=== PATIENT | male | born 1970 | race Caucasian/White ===

== ENCOUNTER → 2020-07-01 09:29 | Outpatient (BNVA) | payer MEDICARE, SELFPAY | PROVIDERS: Referring Provider Family Medicine; Visit Provider Specialist | DX: M25.519 Pain in unspecified shoulder (principal) | CPT/HCPCS: 73030 ==

== ENCOUNTER → 2020-08-02 13:32 | Outpatient (BNVA) | payer MEDICARE, SELFPAY | PROVIDERS: Visit Provider Specialist | DX: M25.512 Pain in left shoulder (principal) | CPT/HCPCS: 73030 ==

== ENCOUNTER 2020-08-20 12:40 | Outpatient (CLI) | payer MEDICARE, SELFPAY ==
--- NOTE | 2020-08-20 13:00 | MR_ITS ---
WS: [id number] MRI LEFT SHOULDER HISTORY: M19.012 - Primary osteoarthritis, left shoulder COMPARISON: Shoulder radiograph 08/02/2020 TECHNIQUE: Multiplanar sequences of the shoulder joint are submitted. Significant motion artifact due to patient discomfort and claustrophobia. Study terminated early geraldo use of claustrophobia and pain. Moderate AC joint hypertrophy and osteoarthritis. Increased T2 signal through the AC ligament. There is thickening of the capsule surrounding the AC joint and fluid in the subacromial and subdeltoid bur sa. Osteophytes and hypertrophic bone formation causing mild encroachment upon the anterior supraspin atus. There is deformity of the supraspinatus muscle and tendon. No os acromion. Biceps tendon in nor mal position. Subchondral cystic changes involving the posterior lateral humeral head. Insertion site tear of the supraspinatus tendon with a small amount of fluid extending interstitial. There is also tendinopathy within the distal 2 cm of the tendon. Moderate fraying along both the supe rior and inferior articular surfaces. There is very mild atrophy of the supraspinatus muscle with no edema or fat replacement. No labral tear. No additional rotator cuff tear. MR/MR shoulder LT wo con* [id number] IMPRESSION: 1. Moderate AC joint osteoarthritis with moderate encroachment upon the supras pinatus muscle and tendon. 2. Insertion site tear with mild interstitial extension of the supraspinatus t endon. 3. Supraspinatus tendinopathy involving the distal 2 cm of the tendon.
== END 2020-08-20 12:41 | disposition home or self-care (01) ==
LOC: RADSHAW 12:42
PROVIDERS: PCP Family Medicine; Visit Provider Specialist
DX: M19.012 Primary osteoarthritis, left shoulder (principal); M75.102 Unspecified rotator cuff tear or rupture of left shoulder, not specified as traumatic
CPT/HCPCS: 73221

== ENCOUNTER 2020-10-11 11:39 | Emergency (ER) | payer MEDICARE, SELFPAY ==
[2020-10-11 12:42] VITALS: BP 154/93; PULSE 96; RESP 19; TEMP 37.3; O2SAT 95; BMI 34.2
--- NOTE | 2020-10-11 14:33 | ECG_ITS ---
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
[2020-10-11 14:34] VITALS: BP 169/95; BP 175/111; BP 183/112; PULSE 105; PULSE 79; PULSE 86
--- NOTE | 2020-10-11 14:34 | W.ED.GENADLT ---
HPI - General Adult General: Chief complaint: General Medical Stated complaint: HIGH/LOW BP Time Seen by Provider: 10/11/20 14:30 History of Present Illness: HPI narrative: This patient presents to the emergency department with complaint of feeling off balance at times. Patient states he does have hypertension issues and does take lisinopril for the same. Patient also takes 10 mg of oxycodone 6 times a day. Patient states he thinks he drinks plenty of fluids but is not sure. Patient does not have any other complaints. States has been going on for 3 to 4 days. Will do medical evaluation treat as needed Onset (ago): day(s) Associated symptoms: Deny chest pain, dyspnea, headache(s), nausea, rash, palpitations or vomiting Review of Systems General: Reports: 10 or more systems reviewed and unremarkable except in HPI and below Const: Denies: fever(s), chills, body aches or fatigue Eyes: Denies: change in vision or blurry vision ENMT: Denies: throat pain, hoarseness or mouth pain Card: Denies: chest pain, palpitations, irregular heart rhythm, edema, swelling of feet/ankles or lightheadedness Resp: Denies: dyspnea, productive cough, non-productive cough, wheezing or pain on inspiration GI: Denies: abdominal pain, nausea or vomiting : Denies: flank pain, dysuria, urinary frequency, urinary urgency or urinary hesitancy Musc: Denies: neck pain, back pain, extremity pain, extremity swelling, joint pain, joint swelling, joint redness, joint warmth or limited range of motion Skin/Breast: Denies: rash, pruritus, erythema or skin tenderness Neuro: Reports: dizziness; Denies: headache(s), numbness in extremities or weakness in extremities Psych: Denies: anxiety or depression PFS ED PFSH: Social History Smoking and tobacco status: never smoked Second hand smoke exposure: No Alcohol intake: former Physical Exam Const: COMMON NORMALS: no acute distress, average body habitus, patient oriented x3, no limitations, healthy appearing, alert and well nourished HENMT: COMMON NORMALS: normocephalic, atraumatic, hearing grossly normal bilaterally, external ears normal, EAC's normal, TM's normal bilaterally, Normal external nose present, Normal nasal mucous membranes and turbinates present, moist oral mucous membranes, oropharynx normal, dentition normal and gingiva normal HEAD & SCALP: normocephalic and atraumatic NOSE: Normal external nose present and Normal nasal mucous membranes and turbinates present EXTERNAL EAR: Yes external ears normal EXTERNAL AUDITORY CANAL: EAC's normal TYMPANIC MEMBRANE: TM's normal bilaterally Neck/C-Spine: COMMON NORMALS: full ROM, no lymphadenopathy, supple, no meningeal signs, no JVD, Thyroid normal and No carotid bruits THYROID: Thyroid normal Chest: COMMONS NORMALS: normal inspection of the chest, normal palpation of entire chest wall, normal inspection of the breasts and normal palpation of the breasts Breast/axilla inspection: Yes normal inspection of the breasts BREAST/AXILLA PALPATION: Yes normal palpation of the breasts Resp: COMMON NORMALS: normal respiratory effort, No retractions, No use of accessory muscles, clear to auscultation bilaterally and percussion normal AUSCULTATION: clear to auscultation bilaterally PERCUSSION: percussion normal Cardio: COMMON NORMALS: no JVD, regular rate, regular rhythm, S1 normal heart sound present, S2 normal heart sound present, No gallops present (Cardio), No clicks present (Cardio), No murmurs present (Cardio), No rub (Cardio) and Peripheral pulses 2+ throughout RATE: regular rate RHYTHM: regular rhythm HEART SOUNDS: S1 normal heart sound present and S2 normal heart sound present PERIPHERAL PULSES: Peripheral pulses 2+ throughout GI: COMMON NORMALS: Normal to inspection, nondistended, normoactive bowel sounds present, Soft to palpation, non-tender, No hepatosplenomegaly present, no masses and no bruits PALPATION: Yes Soft to palpation and Yes No hepatosplenomegaly present : COMMON NORMALS: Yes no CVA tenderness BLADDER/KIDNEY EXAM: Yes no CVA tenderness Back/Pelvis: COMMON NORMALS: no CVA tenderness, thoracic and lumbar spine normal to inspection, no thoracic nor lumbar tenderness, thoraco-lumbar ROM normal and straight leg raise negative bilaterally Extremity: COMMON NORMALS: normal to inspection, full ROM, capillary refill normal, no joint enlargement, no clubbing, cyanosis or edema, no calf tenderness and no pedal edema Neuro: COMMON NORMALS: patient oriented x3 SENSORIUM/ORIENTATION: Yes alert MENINGEAL SIGNS: Yes no meningeal signs Course Reevaluation(s): Reevaluation #1: Negative evaluation in the emergency room for any acute findings. Patient is to continue all home medications encourage p.o. fluids and follow-up with primary care physician. Time: 17:45 Vital Signs: Vital signs: Vital Signs Temperature 99.2 F 10/11/20 17:00 Pulse Rate 83 10/11/20 17:00 Respiratory Rate 16 10/11/20 17:00 Blood Pressure 168/99 10/11/20 17:00 Pulse Oximetry 97 10/11/20 17:00 MDM - General Adult MDM Narrative: Medical decision making narrative: This patient presents to the emergency department with complaint of feeling off balance at times. Patient states he does have hypertension issues and does take lisinopril for the same. Patient also takes 10 mg of oxycodone 6 times a day. Patient states he thinks he drinks plenty of fluids but is not sure. Patient does not have any other complaints. States has been going on for 3 to 4 days. Will do medical evaluation treat as needed Negative evaluation in the emergency room for any acute findings. Patient is to continue all home medications encourage p.o. fluids and follow-up with primary care physician. Medical Records: Attestation: I reviewed the patient's medical records. Lab Data: Attestation: I reviewed the patient's lab results. Labs: Lab Results 10/11/20 10/11/20 10/11/20 Range/Units 14:43 14:43 15:05 WBC 10.5 H (4.0-10.0) 10^3/ uL RBC 6.08 H (4.1-5.3) 10^6/u L Hgb 12.8 (11.7-16.6) g/dL Hct 39.0 L (42.0-52.0) % MCV 64.1 L (80-94) fL MCH 21.1 L (28.0-34.0) pg MCHC 32.8 (30.0-36.0) g/dL RDW 15.3 H (12.1-15.1) % Plt Count 301 (130-400) 10^3/c mm MPV 10.7 H (7.4-10.4) fL Neut % (Auto) 61.5 % Lymph % (Auto) 30.7 % [place] % (Auto) 6.5 % Eos % (Auto) 0.5 % Baso % (Auto) 0.4 % Neut # (Auto) 6.49 (1.8-7.7) 10^3/u L Lymph # (Auto) 3.2 (0.8-4.8) 10^3/u L [place] # (Auto) 0.7 (0.2-0.9) 10^3/u L Eos # (Auto) 0.1 (0.0-0.8) 10^3/u L Baso # (Auto) 0.0 (0.0-0.1) 10^3/u L Nucleated RBC % (a uto) 0.2 % Nucleated RBCs # 0.0 /100WBC Sodium 132 L (136-145) mmol/L Potassium 3.9 (3.5-5.1) mmol/L Chloride 95 L (98-107) mmol/L Carbon Dioxide 20 L (22-29) mmol/L Anion Gap 20.9 H (5-19) BUN 10 (6-20) mg/dL Creatinine 0.6 L (0.7-1.2) mg/dL GFR Calculation 142.0 H (90-130) mL/min Glucose 169 H (65-115) mg/dL Calculated Osmolal ity 277 L (285-295) mOsm/k g Calcium 9.1 (8.5-10.5) mg/dL Total Bilirubin 0.7 (0.15-1.2) mg/dL AST 16 (0-40) U/L ALT 21 (0-41) U/L Alkaline Phosphata se 93 (40-130) IU/L Total Protein 7.6 (6.6-8.7) g/dL Albumin 4.7 (3.5-5.2) g/dL Globulin 2.9 (1.3-4.6) g/dL Urine Color Yellow (Yellow) Urine Appearance Clear (CLEAR) Urine pH 5 (5-7) Ur Specific Gravit y 1.020 (1.005-1.030) Urine Protein Neg (Negative) Urine Glucose (UA) 2+ (Normal) Urine Ketones 1+ H (Negative) Urine Blood Neg (Negative) Urine Nitrate Negative (Negative) Urine Bilirubin Neg (Negative) Urine Urobilinogen Norm (Negative) mg/dL Ur Leukocyte Arlene ase Negative (Negative) EKG Data^: EKG 1: Attestation: I personally reviewed and interpreted this EKG as follows: EKG interpretation date: 10/11/20 EKG interpretation time: 14:45 Prior EKG tracings: not available for review Interpretation: Sinus rhythm with left axis deviation heart rate 80 Discharge Plan Discharge Patient Disposition: Home Clinical Impression: Orthostasis, Chronic pain Condition: Stable Prescriptions: No Action pantoprazole 20 mg tablet,delayed release (DR/EC) 20 mg PO DAILY RF: 0 zolpidem [Ambien] 10 mg tablet 10 mg PO BEDTIME RF: 0 atorvastatin 40 mg tablet 40 mg PO DAILY RF: 0 buspirone 30 mg tablet 30 mg PO BID RF: 0 lamotrigine 200 mg tablet 200 mg PO DAILY RF: 0 lisinopril 40 mg tablet 40 mg PO DAILY RF: 0 nabumetone 750 mg tablet 750 mg PO BID RF: 0 Ozempic 0.25 mg or 0.5 mg(2 mg/1.5 mL) pen injector 0.5 mg SUBCUT Q7D RF: 0 tizanidine 4 mg capsule 4 mg PO TID PRN (Reason: muscle spasms) RF: 0 oxycodone 10 mg tablet 10 mg PO Q8H PRN (Reason: Pain) RF: 0 Tylenol 325 mg Tablet 325 - 650 mg PO Q4H PRN (Reason: Pain) RF: 0 gabapentin 600 mg tablet 600 mg PO TID RF: 0 metformin 1,000 mg tablet 1,000 mg PO BID RF: 0 duloxetine 60 mg capsule,delayed release(DR/EC) 60 mg PO BID RF: 0 hydrochlorothiazide 12.5 mg tablet 12.5 mg PO DAILY RF: 0 Discharge Orders: Discharge ED (Routine); Ordered 10/11/20 Ordered By: Alexander Merritt Referrals: Maxine Napier DO [Primary Care Provider] - Discharge Diet: Advance as tolerated Discharge Activity: Resume usual activity Patient Instructions: Opioid Safety Activity Restrictions/Additional Instructions: Encourage p.o. fluids. Continue all home medications. Follow-up with your PCP in 2 to 3 days. Coding Level of Care Code ED Instructor Kindergarten for Chg Fwd Exam Comprehensive
[2020-10-11 14:36] VITALS: BP 171/104; PULSE 80; RESP 16; O2SAT 94
[2020-10-11 14:48] LABS: Basophils % 0.4 %; Eosinophils # 0.1 10^3/uL (0.0-0.8); Eosinophils % 0.5 %; Hemoglobin 12.8 g/dL (11.7-16.6); Lymphocytes # 3.2 10^3/uL (0.8-4.8); Lymphocytes % 30.7 %; Mean Corpuscular HGB Conc 32.8 g/dL (30.0-36.0); Mean Corpuscular Hemoglobin 21.1 pg (28.0-34.0); Mean Corpuscular Volume 64.1 fL (80-94); Mean Platelet Volume 10.7 fL (7.4-10.4); Monocytes # 0.7 10^3/uL (0.2-0.9); Monocytes % 6.5 %; Neutrophils # 6.49 10^3/uL (1.8-7.7); Neutrophils % 61.5 %; Nucleated Red Blood Cells % 0.2 %; Platelet Count 301 10^3/cmm (130-400); Red Blood Count 6.08 10^6/uL (4.1-5.3); Red Cell Distribution Width 15.3 % (12.1-15.1); White Blood Count 10.5 10^3/uL (4.0-10.0)
[2020-10-11] MEDS: sodium chloride 0.9% 500 ML IV (15:01)
[2020-10-11 15:09] LABS: Alanine Aminotransferase 21 U/L (0-41); Albumin Level 4.7 g/dL (3.5-5.2); Alkaline Phosphatase 93 IU/L (40-130); Anion Gap 20.9 (5-19); Aspartate Amino Transferase 16 U/L (0-40); Blood Urea Nitrogen 10 mg/dL (6-20); Calcium 9.1 mg/dL (8.5-10.5); Carbon Dioxide 20 mmol/L (22-29); Chloride 95 mmol/L (98-107); Globulin 2.9 g/dL (1.3-4.6); Glucose 169 mg/dL (65-115); Osmolality Calculated 277 mOsm/kg (285-295); Potassium 3.9 mmol/L (3.5-5.1); Sodium 132 mmol/L (136-145); Total Bilirubin 0.7 mg/dL (0.15-1.2); Total Protein 7.6 g/dL (6.6-8.7)
[2020-10-11 15:11] LABS: Add Urine Microscopic? NO; Charge for UA Resulting for Rev
[2020-10-11 15:44] LABS: Bilirubin Urine Neg (Negative); Blood Urine Neg (Negative); Glucose Urine UA 2+ (Normal); Ketones Urine 1+ (Negative); Leukocyte Esterase Urine Negative (Negative); Nitrate Urine Negative (Negative); Protein Urine Neg (Negative); Urine Appearance Clear (CLEAR); Urine Color Yellow (Yellow); Urobilinogen Urine Norm (Negative); pH Urine 5 (5-7)
[2020-10-11 15:48] VITALS: BP 168/99; PULSE 87; RESP 16; O2SAT 97
[2020-10-11 17:00] VITALS: BP 168/99; PULSE 83; RESP 16; TEMP 37.3; O2SAT 97
[2020-10-11 18:06] VITALS: BP 155/90; PULSE 78; RESP 16; TEMP 37.2; O2SAT 97
== END 2020-10-11 18:01 | disposition home or self-care (01) ==
PROVIDERS: Physician Assistant; Emergency Provider Emergency Medicine; PCP Family Medicine
DX: I95.1 Orthostatic hypotension (principal); G89.29 Other chronic pain
CPT/HCPCS: 80053; 81003; 85025; 93005; 96360; 99284; J7040

== ENCOUNTER 2021-05-14 15:49 | Emergency (ER) | payer MEDICARE, SELFPAY ==
[2021-05-14 16:06] VITALS: BP 123/95; PULSE 93; RESP 18; TEMP 37; O2SAT 92; BMI 33.3
--- NOTE | 2021-05-14 16:19 | ECG_ITS ---
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 Measurements Intervals [place] Rate: 80 P: 11 [place]: 179 QRS: -41 QRSD: 102 T: 21 QT: 359 QTc: 415 Interpretive Statements SINUS RHYTHM LEFT AXIS DEVIATION [QRS AXIS < -30] POSSIBLE ANTERIOR MYOCARDIAL INFARCTION , OF INDETERMINATE AGE [30 ms Q WAVE IN V3/V4, OR R < 0.2 mV IN V4] Compared to ECG 05/14/2021 16:32:16 Left-axis deviation now present Left anterior fascicular block no longer present Myocardial infarct finding still present Electronically Signed On 05-15-2021 12:09:03 [employer] PLANNING ENGINEER by Rizwana Grant M.D. [email or web address].[employer]/store/[id number]
--- NOTE | 2021-05-14 17:23 | W.ED.GENADLT ---
Documented by User: KAYLYN Montero 05/14/21 19:28 HPI - General Adult General: Chief complaint: General Medical Stated complaint: POSS ACID REFLUX SINCE 1200 Time Seen by Provider: 05/14/21 17:23 History of Present Illness: 51-year-old male patient comes in today with some complaints of dyspepsia and reflux. Patient reports it feels funny in his throat and has seemed to have worsened over the last month with bouts of reflux. Patient does have a history of chronic pain, gastroesophageal reflux, and psychiatric disorder. Patient reports that the discomfort is persistent. Patient does take pantoprazole routinely and has doubled up on his dose yesterday and today. Patient does report some improvement since arriving to the ER. Patient appears in mild to no pain. Patient appears in no acute distress. Review of Systems General: Reports: 10 or more systems reviewed and unremarkable except in HPI and below ENMT: Reports: throat pain PFSH ED PFSH: Social History Smoking and tobacco status: never smoked Second hand smoke exposure: No Alcohol intake: former Physical Exam Const: COMMON NORMALS: alert HENMT: COMMON NORMALS: normocephalic and TM's normal bilaterally HEAD & SCALP: normocephalic NOSE: Abnormal mucous membranes and turbinates present EXTERNAL AUDITORY CANAL: Abnormal EAC present EAC laterality: left (Abrasion outer ear canal) TYMPANIC MEMBRANE: TM's normal bilaterally MOUTH: Normal oral and palatal mucosa present THROAT: posterior oropharynx normal Neck/C-Spine: CERVICAL SPINE: Yes Cervical spine tenderness Lymph: LYMPHATIC: no lymphadenopathy noted Chest: CHEST: Yes tenderness rib (left lateral rib) Resp: COMMON NORMALS: normal respiratory effort and clear to auscultation bilaterally AUSCULTATION: clear to auscultation bilaterally Cardio: COMMON NORMALS: regular rate and regular rhythm RATE: regular rate RHYTHM: regular rhythm GI: COMMON NORMALS: Soft to palpation PALPATION: Yes Soft to palpation and Yes Tenderness to palpation present (GI) Details: other (epigastric) : COMMON NORMALS: Yes no CVA tenderness BLADDER/KIDNEY EXAM: Yes no CVA tenderness Back/Pelvis: COMMON NORMALS: no CVA tenderness THORACIC SPINE/UPPER BACK: No thoracic spinal tenderness LUMBAR SPINE/LOWER BACK: Yes lumbar spinal tenderness Extremity: COMMON NORMALS: no pedal edema Neuro: SENSORIUM/ORIENTATION: Yes alert Psych: COMMON NORMALS: cooperative Skin: COMMON NORMALS: no rashes or lesions noted GENERAL SKIN EXAM: no rashes or lesions noted Course Vital Signs: Vital signs: Vital Signs Temperature 98.6 F 05/14/21 16:06 Pulse Rate 93 05/14/21 16:06 Respiratory Rate 18 05/14/21 16:06 Blood Pressure 123/95 05/14/21 16:06 Pulse Oximetry 92 05/14/21 16:06 [facility] - General Adult Medical Decision Making 51-year-old male patient comes in today with complaints of throat pain and increase in reflux. Patient appears well. Patient appears in no acute distress. On exam patient does have some epigastric tenderness. Posterior pharynx is slightly erythematous. Respirations are even lungs are clear to auscultation. Skin is warm and dry. Differential diagnosis includes but not limited to ACS, esophageal reflux, hiatal hernia. Patient was given a GI cocktail with relief of discomfort. CBC and CMP were notable for some mild hyponatremia which seems to be chronic for patient. CBC was unremarkable. Troponin was negative. Believe the patient probably has exacerbation of reflux. We will increase patient's dose of pantoprazole to 40 mg twice a day for the next 10 days and then recommend weaning back to 20 mg daily. Patient was also given some Zofran to help with nausea. Patient has an appointment to follow-up with his primary care doctor this week which she will keep for further recommendations of treatment. Lab Data : 05/14/21 18:02 05/14/21 18:02 Laboratory Results WBC 8.7 10^3/uL (4.0-10.0) 05/14/21 18: RBC 6.91 10^6/uL (4.1-5.3) H 05/14/21 18:02 Hgb 13.9 g/dL (11.7-16.6) 05/14/21 18:02 Hct 44.0 % (42.0-52.0) 05/14/21 18: MCV 63.7 fl (80-94) L 05/14/21 18:02 MCH 20.1 pg (28.0-34.0) L 05/14/21 18: MCHC 31.6 g/dL (30.0-36.0) 05/14/21 18:02 RDW 14.0 % (12.1-15.1) 05/14/21 18:02 Plt Count 254 10^3/cmm (130-400) 05/14/21 18:02 MPV 10.6 fL (7.4-10.4) H 05/14/21 18:02 Neut % (Auto) 57.6 % 05/14/21 18:02 Lymph % (Auto) 30.0 % 05/14/21 18:02 [place] % (Auto) 7.6 % 05/14/21 18:02 Eos % (Auto) 3.7 % 05/14/21 18:02 Baso % (Auto) 0.8 % 05/14/21 18:02 Neut # (Auto) 5.00 10^3/uL (1.8-7.7) 05/14/21 18: Lymph # (Auto) 2.6 10^3/uL (0.8-4.8) 05/14/21 18:02 [place] # (Auto) 0.7 10^3/uL (0.2-0.9) 05/14/21 18:02 Eos # (Auto) 0.3 10^3/uL (0.0-0.8) 05/14/21 18:02 Baso # (Auto) 0.1 10^3/uL (0.0-0.1) 05/14/21 18:02 Nucleated RBC % (auto) 0 % 05/14/21 18: Nucleated RBCs # 0.0 /100WBC 05/14/21 18:02 Sodium 128 mmol/L (136-145) L 05/14/21 18:02 Potassium 4.6 mmol/L (3.5-5.1) 05/14/21 18:02 Chloride 90 mmol/L (98-107) L 05/14/21 18:02 Carbon Dioxide 22 mmol/L (22-29) 05/14/21 18:02 Anion Gap 20.6 (5-19) H 05/14/21 18:02 BUN 7 mg/dL (6-20) 05/14/21 18:02 Creatinine 0.6 mg/dL (0.7-1.2) L 05/14/21 18:02 GFR Calculation 141.5 mL/min (90-130) H 05/14/21 18:02 Glucose 176 mg/dL (65-115) H 05/14/21 18:02 Calculated Osmolality 268 mOsm/kg (285-295) L 05/14/21 18:02 Calcium 9.9 mg/dL (8.5-10.5) 05/14/21 18:02 Total Bilirubin 0.4 mg/dL (0.15-1.2) 05/14/21 18:02 AST 28 U/L (0-40) 05/14/21 18:02 ALT 38 U/L (0-41) 05/14/21 18:02 Alkaline Phosphatase 94 IU/L (40-130) 05/14/21 18:02 Troponin T Baseline 9 ng/L (0-15) 05/14/21 18:02 Total Protein 8.2 g/dL (6.6-8.7) 05/14/21 18: Albumin 5.1 g/dL (3.5-5.2) 05/14/21 18: Globulin 3.1 g/dL (1.3-4.6) 05/14/21 18:02 Lipase 63 U/L (13-60) H 05/14/21 18:02 EKG Data EKG 1: EKG interpretation date: 05/14/21 EKG interpretation time: 16:32 Interpretation: EKG showed a sinus rhythm, regular rate with [address] elevation is noted. No ectopy is noted. There was some noted changes from prior exam on October 11, 2020. EKG shows left anterior fascicular block which was new possible myocardial infarction of indeterminate age, and absent left axis deviation. Discharge Plan Discharge Patient Disposition: Home Clinical Impression: GERD (gastroesophageal reflux disease) Qualifiers: Esophagitis presence: esophagitis presence not specified Qualified Code(s): K21.9 - Gastro-esophageal reflux disease without esophagitis Condition: Stable Prescriptions: New pantoprazole 40 mg tablet,delayed release (DR/EC) 40 mg PO BID 10 Days Qty: 20 0RF ondansetron 4 mg tablet,disintegrating 4 mg PO Q8H PRN (Reason: nausea and vomiting) Qty: 7 0RF Discontinued Ozempic 0.25 mg or 0.5 mg(2 mg/1.5 mL) pen injector 0.5 mg SUBCUT Q7D 0RF Rx Instructions: take on Fridays. No Action pantoprazole 20 mg tablet,delayed release (DR/EC) 20 mg PO DAILY 0RF zolpidem [Ambien] 10 mg tablet 10 mg PO BEDTIME 0RF atorvastatin 40 mg tablet 40 mg PO DAILY 0RF buspirone 30 mg tablet 30 mg PO BID 0RF lamotrigine 200 mg tablet 200 mg PO DAILY 0RF lisinopril 40 mg tablet 40 mg PO DAILY 0RF nabumetone 750 mg tablet 750 mg PO BID 0RF tizanidine 4 mg capsule 4 mg PO TID PRN (Reason: muscle spasms) 0RF oxycodone 10 mg tablet 10 mg PO Q8H PRN (Reason: Pain) 0RF Tylenol 325 mg Tablet 325 - 650 mg PO Q4H PRN (Reason: Pain) 0RF Rx Instructions: pt takes up to 4 tabs at a time. gabapentin 600 mg tablet 600 mg PO TID 0RF metformin 1,000 mg tablet 1,000 mg PO BID 0RF duloxetine 60 mg capsule,delayed release(DR/EC) 60 mg PO BID 0RF hydrochlorothiazide 12.5 mg tablet 12.5 mg PO DAILY 0RF Discharge Orders: Discharge ED (Routine); Ordered 05/14/21 Ordered By: Homer Escalona Referrals: Maxine Napier DO [Primary Care Provider] - Discharge Diet: As Directed Discharge Activity: Increase activity as tolerated Patient Instructions: GERD (Gastroesophageal Reflux Disease) (ED), Opioid Safety Activity Restrictions/Additional Instructions: Increase pantoprazole to 40 mg twice a day for next 10 days. Then decrease dosing back to 20 mg daily. Use Zofran three times a day as needed for nausea. Drink plenty of water. Avoid carbonated beverages, spicy foods, or other foods that aggravate your reflux. Follow-up with primary care. Return to ER for new concerns. Coding Level of Care Code ED Hospitality Associate for Chg Fwd Exam Comprehensive Documented by User: Cameron Samano DO 05/14/21 23:04 HPI - General Adult General: Chief complaint: General Medical Stated complaint: POSS ACID REFLUX SINCE 1200 Time Seen by Provider: 05/14/21 17:23 [facility] ED PFSH: Social History Smoking and tobacco status: never smoked Second hand smoke exposure: No Alcohol intake: former Course Vital Signs: Vital signs: Vital Signs Temperature 98.6 F 05/14/21 16:06 Pulse Rate 93 05/14/21 16:06 Respiratory Rate 18 05/14/21 16:06 Blood Pressure 123/95 05/14/21 16:06 Pulse Oximetry 92 05/14/21 16:06 MDM - General Adult Medical Decision Making 51-year-old male patient comes in today with complaints of throat pain and increase in reflux. Patient appears well. Patient appears in no acute distress. On exam patient does have some epigastric tenderness. Posterior pharynx is slightly erythematous. Respirations are even lungs are clear to auscultation. Skin is warm and dry. Differential diagnosis includes but not limited to ACS, esophageal reflux, hiatal hernia. Patient was given a GI cocktail with relief of discomfort. CBC and CMP were notable for some mild hyponatremia which seems to be chronic for patient. CBC was unremarkable. Troponin was negative. Believe the patient probably has exacerbation of reflux. We will increase patient's dose of pantoprazole to 40 mg twice a day for the next 10 days and then recommend weaning back to 20 mg daily. Patient was also given some Zofran to help with nausea. Patient has an appointment to follow-up with his primary care doctor this week which she will keep for further recommendations of treatment. This patient was originally seen by KAYLYN Easley.? I agree with his history, evaluation, and treatment. Lab Data : 05/14/21 18:02 05/14/21 18:02 Laboratory Results WBC 8.7 10^3/uL (4.0-10.0) 05/14/21 18:02 RBC 6.91 10^6/uL (4.1-5.3) H 05/14/21 18:02 Hgb 13.9 g/dL (11.7-16.6) 05/14/21 18: Hct 44.0 % (42.0-52.0) 05/14/21 18: MCV 63.7 fl (80-94) L 05/14/21 18: MCH 20.1 pg (28.0-34.0) L 05/14/21 18: MCHC 31.6 g/dL (30.0-36.0) 05/14/21 18: RDW 14.0 % (12.1-15.1) 05/14/21 18: Plt Count 254 10^3/cmm (130-400) 05/14/21 18:02 MPV 10.6 fL (7.4-10.4) H 05/14/21 18:02 Neut % (Auto) 57.6 % 05/14/21 18: Lymph % (Auto) 30.0 % 05/14/21 18: [place] % (Auto) 7.6 % 05/14/21 18: Eos % (Auto) 3.7 % 05/14/21 18: Baso % (Auto) 0.8 % 05/14/21 18: Neut # (Auto) 5.00 10^3/uL (1.8-7.7) 05/14/21 18:02 Lymph # (Auto) 2.6 10^3/uL (0.8-4.8) 05/14/21 18:02 [place] # (Auto) 0.7 10^3/uL (0.2-0.9) 05/14/21 18:02 Eos # (Auto) 0.3 10^3/uL (0.0-0.8) 05/14/21 18:02 Baso # (Auto) 0.1 10^3/uL (0.0-0.1) 05/14/21 18: Nucleated RBC % (auto) 0 % 05/14/21 18: Nucleated RBCs # 0.0 /100WBC 05/14/21 18:02 Sodium 128 mmol/L (136-145) L 05/14/21 18: Potassium 4.6 mmol/L (3.5-5.1) 05/14/21 18:02 Chloride 90 mmol/L (98-107) L 05/14/21 18:02 Carbon Dioxide 22 mmol/L (22-29) 05/14/21 18:02 Anion Gap 20.6 (5-19) H 05/14/21 18:02 BUN 7 mg/dL (6-20) 05/14/21 18:02 Creatinine 0.6 mg/dL (0.7-1.2) L 05/14/21 18:02 GFR Calculation 141.5 mL/min (90-130) H 05/14/21 18:02 Glucose 176 mg/dL (65-115) H 05/14/21 18:02 Calculated Osmolality 268 mOsm/kg (285-295) L 05/14/21 18:02 Calcium 9.9 mg/dL (8.5-10.5) 05/14/21 18:02 Total Bilirubin 0.4 mg/dL (0.15-1.2) 05/14/21 18:02 AST 28 U/L (0-40) 05/14/21 18:02 ALT 38 U/L (0-41) 05/14/21 18:02 Alkaline Phosphatase 94 IU/L (40-130) 05/14/21 18:02 Troponin T Baseline 9 ng/L (0-15) 05/14/21 18:02 Total Protein 8.2 g/dL (6.6-8.7) 05/14/21 18:02 Albumin 5.1 g/dL (3.5-5.2) 05/14/21 18:02 Globulin 3.1 g/dL (1.3-4.6) 05/14/21 18:02 Lipase 63 U/L (13-60) H 05/14/21 18:02 Discharge Plan Discharge Patient Disposition: Home Clinical Impression: GERD (gastroesophageal reflux disease) Qualifiers: Esophagitis presence: esophagitis presence not specified Qualified Code(s): K21.9 - Gastro-esophageal reflux disease without esophagitis Condition: Stable Prescriptions: New pantoprazole 40 mg tablet,delayed release (DR/EC) 40 mg PO BID 10 Days Qty: 20 0RF ondansetron 4 mg tablet,disintegrating 4 mg PO Q8H PRN (Reason: nausea and vomiting) Qty: 7 0RF Discontinued Ozempic 0.25 mg or 0.5 mg(2 mg/1.5 mL) pen injector 0.5 mg SUBCUT Q7D 0RF Rx Instructions: take on Fridays. No Action pantoprazole 20 mg tablet,delayed release (DR/EC) 20 mg PO DAILY 0RF zolpidem [Ambien] 10 mg tablet 10 mg PO BEDTIME 0RF atorvastatin 40 mg tablet 40 mg PO DAILY 0RF buspirone 30 mg tablet 30 mg PO BID 0RF lamotrigine 200 mg tablet 200 mg PO DAILY 0RF lisinopril 40 mg tablet 40 mg PO DAILY 0RF nabumetone 750 mg tablet 750 mg PO BID 0RF tizanidine 4 mg capsule 4 mg PO TID PRN (Reason: muscle spasms) 0RF oxycodone 10 mg tablet 10 mg PO Q8H PRN (Reason: Pain) 0RF Tylenol 325 mg Tablet 325 - 650 mg PO Q4H PRN (Reason: Pain) 0RF Rx Instructions: pt takes up to 4 tabs at a time. gabapentin 600 mg tablet 600 mg PO TID 0RF metformin 1,000 mg tablet 1,000 mg PO BID 0RF duloxetine 60 mg capsule,delayed release(DR/EC) 60 mg PO BID 0RF hydrochlorothiazide 12.5 mg tablet 12.5 mg PO DAILY 0RF Discharge Orders: Discharge ED (Routine); Ordered 05/14/21 Ordered By: Homer Escalona Referrals: Maxine Napier DO [Primary Care Provider] - Discharge Diet: As Directed Discharge Activity: Increase activity as tolerated Patient Instructions: GERD (Gastroesophageal Reflux Disease) (ED), Opioid Safety Activity Restrictions/Additional Instructions: Increase pantoprazole to 40 mg twice a day for next 10 days. Then decrease dosing back to 20 mg daily. Use Zofran three times a day as needed for nausea. Drink plenty of water. Avoid carbonated beverages, spicy foods, or other foods that aggravate your reflux. Follow-up with primary care. Return to ER for new concerns. Coding Level of Care Code ED Hospitality Associate for Eyad Fwadolfo Exam Comprehensive
[2021-05-14] MEDS: lidocaine 2% viscous 15 ML, aluminum-mag hydrox-simethicon 30 ML, sucralfate oral liq 1 GM PO (17:44)
--- NOTE | 2021-05-14 18:19 | ECG_ITS ---
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 Measurements Intervals [place] Rate: 93 P: 13 CA: 179 QRS: -48 QRSD: 100 T: 37 QT: 333 QTc: 415 Interpretive Statements SINUS RHYTHM LEFT ANTERIOR FASCICULAR BLOCK [QRS AXIS <= -45, QR IN I, RS IN II] POSSIBLE ANTERIOR MYOCARDIAL INFARCTION , OF INDETERMINATE AGE [30 ms Q WAVE IN V3/V4, OR R < 0.2 mV IN V4] Compared to ECG 10/11/2020 14:45:52 Left anterior fascicular block now present Myocardial infarct finding now present Left-axis deviation no longer present Electronically Signed On 05-15-2021 12:19:43 [employer] SUPERVISOR by Rizwana Grant M.D. [id number]
[2021-05-14 18:33] LABS: Basophils # 0.1 10^3/uL (0.0-0.1); Basophils % 0.8 %; Eosinophils # 0.3 10^3/uL (0.0-0.8); Eosinophils % 3.7 %; Hemoglobin 13.9 g/dL (11.7-16.6); Lymphocytes # 2.6 10^3/uL (0.8-4.8); Mean Corpuscular HGB Conc 31.6 g/dL (30.0-36.0); Mean Corpuscular Hemoglobin 20.1 pg (28.0-34.0); Mean Corpuscular Volume 63.7 fl (80-94); Mean Platelet Volume 10.6 fL (7.4-10.4); Monocytes # 0.7 10^3/uL (0.2-0.9); Monocytes % 7.6 %; Neutrophils % 57.6 %; Nucleated Red Blood Cells % 0 %; Platelet Count 254 10^3/cmm (130-400); Red Blood Count 6.91 10^6/uL (4.1-5.3); White Blood Count 8.7 10^3/uL (4.0-10.0)
[2021-05-14 18:52] LABS: Alanine Aminotransferase 38 U/L (0-41); Albumin Level 5.1 g/dL (3.5-5.2); Alkaline Phosphatase 94 IU/L (40-130); Blood Urea Nitrogen 7 mg/dL (6-20); Calcium 9.9 mg/dL (8.5-10.5); Carbon Dioxide 22 mmol/L (22-29); Chloride 90 mmol/L (98-107); Globulin 3.1 g/dL (1.3-4.6); Glomerular Filtration Rate 141.5 mL/min (90-130); Glucose 176 mg/dL (65-115); Lipase 63 U/L (13-60); Osmolality Calculated 268 mOsm/kg (285-295); Sodium 128 mmol/L (136-145); Total Bilirubin 0.4 mg/dL (0.15-1.2); Total Protein 8.2 g/dL (6.6-8.7); Troponin(5th) Baseline 9 ng/L (0-15)
[2021-05-14 19:03] LABS: Anion Gap 20.6 (5-19); Aspartate Amino Transferase 28 U/L (0-40); Potassium 4.6 mmol/L (3.5-5.1)
== END 2021-05-14 19:50 | disposition home or self-care (01) ==
PROVIDERS: Physician Assistant; Emergency Provider Nurse Practitioner Family; PCP Family Medicine
DX: K21.9 Gastro-esophageal reflux disease without esophagitis (principal); Z79.84 Long term (current) use of oral hypoglycemic drugs
CPT/HCPCS: 80053; 83690; 84484; 85025; 93005; 99283

== ENCOUNTER 2023-07-19 14:27 | Observation (INO) | payer MEDICARE, SELFPAY ==
[2023-07-19] VITALS (9 sets, daily range): BP systolic 85–145; BP diastolic 59–91; PULSE 76–102; RESP 17–22; TEMP 36.9; O2SAT 93–97; BMI 30.2
--- NOTE | 2023-07-19 14:33 | CT_ITS ---
WS: [id number] CT HEAD NONCONTRAST HISTORY: syncope TECHNIQUE: Contiguous axial imaging performed through the brain in 2.5 mm imaging. Bone and soft tiss ue windows. Sagittal and coronal reformats reviewed. All CT scans at [facility] use at least one of these dose optimization techniques: automated exposure control; mA and/or kV adjustment per pa tient size (includes targeted exams where dose is matched to clinical indication); or iterative recon struction. DLP: 1157.68 mGy.cm COMPARISON: None available. No acute intracranial hemorrhage, midline shift or mass effect. No atrophy or prior infarcts or herniation. Ventricles: Normal size with no hydrocephalus. Paranasal sinuses: As visualized are clear. Mastoid air cells: Well pneumatized. Calvarium and scalp: Skull is intact with no soft tissue edema or swelling. CT/CT head wo con* [id number] IMPRESSION: Negative head CT.
--- NOTE | 2023-07-19 14:33 | XR_ITS ---
WS: [id number] Portable AP upright chest, 07/19/2023 Clinical Data: sob Comparison: None. Findings: No nodules, masses or effusions are seen. The heart is normal. The pulmonary vascularity is not increased. No pneumonia or pneumothorax is seen. There are monitor leads on the chest wall. XR/XR chest 1V portable [id number] Impression: Negative chest.
--- NOTE | 2023-07-19 14:35 | ED_ITS ---
HPI - General Adult 2 General: Chief complaint: Weakness Stated complaint: weakness Time Seen by Provider: 07/19/23 14:30 Source: patient and EMS Mode of arrival: EMS Limitations: no limitations History of Present Illness: Patient states that 2 hours ago he started having weakness along with near syncope. He states that anytime he stands he feels like he is going to pass out states he had some diarrhea and having some shortness of breath as well denies any chest pain EMS states his blood pressures were in the 70s it is 85/59 currently. He states he feels okay laying flat but anytime he stands a feels like he is going to pass out. Denies any slurred speech or focal deficits. Associated symptoms: Reports dyspnea; Deny chest pain, headache(s), nausea, rash or vomiting Review of Systems 2 Const: Reports: fatigue; Denies: fever(s), chills, body aches or change in appetite ENMT: Denies: throat pain or dental pain Card: Reports: pre-syncope; Denies: chest pain Resp: Reports: dyspnea GI: Reports: diarrhea; Denies: abdominal pain, nausea or vomiting : Denies: dysuria Musc: Denies: neck pain or back pain Skin/Breast: Denies: rash Neuro: Denies: headache(s) PFSH ED 2 PFSH: Medical History Diabetes type 2, controlled Hypertension Anxiety Depression Degenerative disorder of bone Surgical History History of left hip replacement History of cholecystectomy Social History Smoking and tobacco/nicotine status: never used tobacco/nicotine Second hand smoke exposure: No Alcohol intake: former Physical Exam 2 Const: COMMON NORMALS: patient oriented x3 HENMT: COMMON NORMALS: normocephalic and atraumatic HEAD & SCALP: n ormocephalic and atraumatic Eye: COMMON NORMALS: Equal, round and reactive pupils present and EOMs intact bilaterally PUPIL: Yes Equal, round and reactive pupils present Neck/C-Spine: COMMON NORMALS: full ROM and supple Chest: COMMONS NORMALS: normal inspection of the chest and normal palpation of entire chest wall Resp: COMMON NORMALS: normal respiratory effort, No retractions, No use of accessory muscles and clear to auscultation bilaterally AUSCULTATION: clear to auscultation bilaterally Cardio: COMMON NORMALS: regular rhythm and No murmurs present (Cardio) R ATE: tachycardic RHYTHM: regular rhythm GI: COMMON NORMALS: Normal to inspection, nondistended, normoactive bowel sounds present, Soft to palpation, non-tender and no masses PALPATION: Yes Soft to palpation Extremity: COMMON NORMALS: normal to inspection and full ROM Neuro: COMMON NORMALS: patient oriented x3, moves all extremities and no focal motor deficits Psych: COMMON NORMALS: mental status grossly normal, Normal thought process present and cooperative THOUGHT PROCESS: Normal thought process present Skin: COMMON NORMALS: no rashes or lesions noted and no wounds GENERAL SKIN EXAM: no rashes or lesions noted Course 2 Vital Signs: Vital signs: Vital Signs Pulse Rate 91 07/19/23 15:33 Respiratory Rate 22 H 07/19/23 15:33 Blood Pressure 101/64 07/19/23 15:33 Pulse Oximetry 95 07/19/23 15:33 Oxygen Delivery Me thod Room Air 07/19/23 15:09 MDM - General Adult Medical Decision Making Patient presents here with near syncopal event along with weakness. Patient was originally hypotension in the 80s when he got here his blood pressures improved to 111/70 now after fluids he does have an elevated white count and lactate he is afebrile here chest x-ray shows no pneumonia he has not produced a urine and refused the cath here. Did give him sepsis bolus of fluids he had received 1 L with EMS and 2500 mL here. Also got blood cultures and antibiotics. I believe his elevated lactate is likely from dehydration spoke to the hospitalist and will admit this time Medical Records I reviewed the patient's medical records. Lab Data I reviewed the patient's lab results. 07/19/23 14:35 07/19/23 14:35 Radiology Impressions Chest X-Ray 07/19/23 14:33 Impression: Negative chest. Head CT 07/19/23 14:33 IMPRESSION: Negative head CT. Laboratory Results WBC 15.38 10^3/uL (3.29-11.43) H 07/19/23 14:35 RBC 6.26 10^6/uL (3.85-5.65) H 07/19/23 14:35 Hgb 13.20 g/dL (11.27-16.99) 07/19/23 14:35 Hct 41.1 % (37-53) 07/19/23 14:35 MCV 65.7 fl (82-101) L 07/19/23 14:35 MCH 21.1 pg (27-33) L 07/19/23 14:35 MCHC 32.1 g/dL (30-55) 07/19/23 14:35 RDW 17.0 % (12.1-15.1) H 07/19/23 14:35 Plt Count 316 10^3/cmm (157-399) 07/19/23 14:35 MPV 11.0 fL (7.4-10.4) H 07/19/23 14:35 Neut % (Auto) 78.0 % 07/19/23 14:35 Lymph % (Auto) 12.8 % 07/19/23 14:35 [place] % (Auto) 7.2 % 07/19/23 14:35 Eos % (Auto) 0.7 % 07/19/23 14:35 Baso % (Auto) 0.6 % 07/19/23 14:35 Neut # (Auto) 12.01 10^3/uL (1.8-7.7) H 07/19/23 14:35 Lymph # (Auto) 2.0 10^3/uL (0.8-4.8) 07/19/23 14:35 [place] # (Auto) 1.1 10^3/uL (0.2-0.9) H 07/19/23 14:35 Eos # (Auto) 0.1 10^3/uL (0.0-0.8) 07/19/23 14:35 Baso # (Auto) 0.1 10^3/uL (0.0-0.1) 07/19/23 14:35 Nucleated RBC % (auto) 1.0 % 07/19/23 14:35 Nucleated RBCs # 0.2 /100WBC 07/19/23 14:35 PT 13.70 SECONDS (12.1-14.9) 07/19/23 14:35 INR 1.02 (0.8-1.2) 07/19/23 14:35 D-Dimer <= 0.27 ug/mLFEU (0-0.59) 07/19/23 14:35 Sodium 140 mmol/L (136-145) 07/19/23 14:35 Potassium 4.2 mmol/L (3.5-5.1) 07/19/23 14:35 Chloride 100 mmol/L (98-107) 07/19/23 14:35 Carbon Dioxide 21 mmol/L (22-29) L 07/19/23 14:35 Anion Gap 23.2 (5-19) H 07/19/23 14:35 BUN 23 mg/dL (6-20) H 07/19/23 14:35 Creatinine 1.7 mg/dL (0.7-1.2) H 07/19/23 14:35 GFR Calculation 42.2 mL/min (90-130) L 07/19/23 14:35 Glucose 176 mg/dL (65-115) H 07/19/23 14:35 Calculated Osmolality 298 mOsm/kg (285-295) H 07/19/23 14:35 Lactic Acid 4.5 mmol/L (0.5-2.2) H* 07/19/23 14:35 Calcium 9.5 mg/dL (8.5-10.5) 07/19/23 14:35 Magnesium 2.0 mg/dL (1.7-2.3) 07/19/23 14:35 Total Bilirubin 0.6 mg/dL (0.15-1.2) 07/19/23 14:35 AST 34 U/L (0-40) 07/19/23 14:35 ALT 37 U/L (0-41) 07/19/23 14:35 Alkaline Phosphatase 105 U/L (40-130) 07/19/23 14:35 Troponin T Baseline 35 ng/L (0-15) H 07/19/23 14:35 NT-Pro-B Natriuret Pep 49 pg/mL (0-125) 07/19/23 14:35 Total Protein 7.8 g/dL (6.6-8.7) 07/19/23 14:35 Albumin 4.8 g/dL (3.5-5.2) 07/19/23 14:35 Globulin 3.0 g/dL (1.3-4.6) 07/19/23 14:35 TSH 3.42 uIU/mL (0.27-4.20) 07/19/23 14:35 All radiology interpretation(s) finalized by discharge EKG Data EKG 1: I personally reviewed and interpreted this EKG as follows: EKG interpretation date: 07/19/23 EKG interpretation time: 14:55 Interpretation: nsr hr [address] or t wave abnormalities qrs 101 qtc 398 Computer generated interpretation: Chest X-Ray 07/19/23 14:33 Impression: Negative chest. Head CT 07/19/23 14:33 IMPRESSION: Negative head CT. Discharge Plan Discharge Patient Disposition: Admitted As Inpatient Clinical Impression: Diarrhea, Dehydration, Near syncope Condition: Stable Prescriptions: No Action pantoprazole 20 mg tablet,delayed release (DR/EC) 20 mg PO DAILY atorvastatin 40 mg tablet 40 mg PO DAILY buspirone 30 mg tablet 30 mg PO BID lamotrigine 200 mg tablet 200 mg PO DAILY lisinopril 40 mg tablet 40 mg PO DAILY nabumetone 750 mg tablet 750 mg PO BID tizanidine 4 mg capsule 4 mg PO TID PRN (Reason: muscle spasms) oxycodone 10 mg tablet 10 mg PO Q4H PRN (Reason: Pain) acetaminophen [Tylenol] 325 mg Tablet 325 - 650 mg PO Q4H PRN (Reason: Pain) gabapentin 600 mg tablet 600 mg PO TID metformin 1,000 mg tablet 1,000 mg PO BID duloxetine 60 mg capsule,delayed release(DR/EC) 60 mg PO BID hydrochlorothiazide 25 mg tablet 25 mg PO DAILY PRN (Reason: SWELLING) zolpidem 12.5 mg tablet,ext release multiphase 12.5 mg PO BEDTIME PRN (Reason: Insomnia) albuterol sulfate 90 mcg/actuation HFA aerosol inhaler 1 puff INHALATION Q4H PRN (Reason: Shortness Of Breath) Referrals: Maxine Napier DO [Primary Care Provider] - Coding Level of Care Code ED Senior Payroll Administrator for Eyad Holliday
[2023-07-19 14:46] LABS: Basophils # 0.1 10^3/uL (0.0-0.1); Basophils % 0.6 %; Eosinophils # 0.1 10^3/uL (0.0-0.8); Eosinophils % 0.7 %; Hematocrit 41.1 % (37-53); Lymphocytes % 12.8 %; Mean Corpuscular HGB Conc 32.1 g/dL (30-55); Mean Corpuscular Hemoglobin 21.1 pg (27-33); Mean Corpuscular Volume 65.7 fl (82-101); Monocytes # 1.1 10^3/uL (0.2-0.9); Monocytes % 7.2 %; Neutrophils # 12.01 10^3/uL (1.8-7.7); Nucleated Red Blood Cells # 0.2 /100WBC; Platelet Count 316 10^3/cmm (157-399); Red Blood Count 6.26 10^6/uL (3.85-5.65); White Blood Count 15.38 10^3/uL (3.29-11.43)
--- NOTE | 2023-07-19 14:55 | ECG_ITS ---
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 Measurements Intervals [place] Rate: 94 P: 0 MA: 142 QRS: -15 QRSD: 101 T: 40 QT: 346 QTc: 434 Interpretive Statements SINUS RHYTHM INFERIOR MYOCARDIAL INFARCTION , OF INDETERMINATE AGE [40+ ms Q WAVE AND/OR ST/T ABNORMALITY IN II/aVF] Compared to ECG 05/14/2021 18:04:04 Left-axis deviation no longer present Myocardial infarct finding still present Electronically Signed On 07-19-2023 17:11:58 CDT by Lucio Espinal M.D. [id number]
[2023-07-19 15:05] LABS: Lactic Sepsis W/Reflex 4.5 mmol/L (0.5-2.2); Troponin(5th) Baseline 35 ng/L (0-15)
[2023-07-19] MEDS: sodium chloride 0.9% 500 ML 999 ML IV (15:10)
[2023-07-19] MEDS: sodium chloride 0.9% 1,000 ML 999 ML IV ×2 (15:10)
[2023-07-19 15:15] LABS: Alanine Aminotransferase 37 U/L (0-41); Albumin Level 4.8 g/dL (3.5-5.2); Alkaline Phosphatase 105 U/L (40-130); Anion Gap 23.2 (5-19); Aspartate Amino Transferase 34 U/L (0-40); Blood Urea Nitrogen 23 mg/dL (6-20); Calcium 9.5 mg/dL (8.5-10.5); Carbon Dioxide 21 mmol/L (22-29); Chloride 100 mmol/L (98-107); Creatinine Clr Calc Pharmacy 63.3359; Glomerular Filtration Rate 42.2 mL/min (90-130); Glucose 176 mg/dL (65-115); NT Pro B Type Natriuretic Pept 49 pg/mL (0-125); Osmolality Calculated 298 mOsm/kg (285-295); Potassium 4.2 mmol/L (3.5-5.1); Sodium 140 mmol/L (136-145); Thyroid Stimulating Hormone 3.42 uIU/mL (0.27-4.20); Total Bilirubin 0.6 mg/dL (0.15-1.2); Total Protein 7.8 g/dL (6.6-8.7)
[2023-07-19 15:20] LABS: INR 1.02 (0.8-1.2)
[2023-07-19 15:23] LABS: D Dimer <= 0.27 ug/mLFEU (0-0.59)
[2023-07-19] MEDS: piperacillin-tazobactam 3.375 GM in sodium chloride 0.9% (plus) 50 ML IV (15:36)
--- NOTE | 2023-07-19 15:47 | P.HP_ITS ---
Providers/Chief Complaint 2 Primary Care Provider: Maxine Napier DO Chief Complaint: weakness History of Present Illness Donna Presley is a 53 year old male presenting with a few days symptoms of nausea and vomiting, in the ER has been diagnosed with sepsis related to gastroenteritis, also has ROLO. Patient is stating that he was in his usual state of health when today started getting dizzy status followed with nausea 1 episode of diarrhea and vomiting. No fever. No chest pain or any syncopal event. He noticed that his blood pressure was dropping and he was feeling weaker and weaker that prompted his visit to the ER I requested CT abdomen pelvis without contrast, will request echo Review of Systems 2 Const: Reports: chills; Denies: fever(s) Eyes: Denies: change in vision ENMT: Denies: throat pain Card: Denies: chest pain Resp: Denies: dyspnea GI: Reports: nausea and diarrhea Medications/Allergies Home Medications Medication Instructions Recorded Confirmed Last Taken Type atorvastatin 40 mg tablet 40 mg PO DAILY 07/01/20 07/19/23 07/18/23 History buspirone 30 mg tablet 30 mg PO BID 07/01/20 07/19/23 07/18/23 History lamotrigine 200 mg tablet 200 mg PO DAILY 07/01/20 07/19/23 07/18/23 History lisinopril 40 mg tablet 40 mg PO DAILY 07/01/20 07/19/23 07/18/23 History nabumetone 750 mg tablet 750 mg PO BID 07/01/20 07/19/23 07/18/23 History oxycodone 10 mg tablet 10 mg PO Q4H PRN Pain 07/01/20 07/19/23 10/10/20 History pantoprazole 20 mg tablet,delayed 20 mg PO DAILY 07/01/20 07/19/23 07/18/23 History release tizanidine 4 mg capsule 4 mg PO TID PRN muscle spasms 07/01/20 07/19/23 Unknown History acetaminophen 325 mg tablet 325 - 650 mg PO Q4H PRN Pain 10/11/20 07/19/23 10/11/20 History (Tylenol) duloxetine 60 mg capsule,delayed 60 mg PO BID 10/11/20 07/19/23 07/18/23 History release gabapentin 600 mg tablet 600 mg PO TID 10/11/20 07/19/23 07/18/23 History metformin 1,000 mg tablet 1,000 mg PO BID 10/11/20 07/19/23 07/18/23 History albuterol sulfate 90 mcg/actuation 1 puff inhalation Q4H PRN 07/19/23 07/19/23 Unknown History aerosol inhaler Shortness Of Breath hydrochlorothiazide 25 mg tablet 25 mg PO DAILY PRN SWELLING 07/19/23 07/19/23 07/18/23 History zolpidem 12.5 mg tablet,extended 12.5 mg PO BEDTIME PRN Insomnia 07/19/23 07/19/23 Unknown History release,multiphase Allergies Allergy/AdvReac Type Severity Reaction Status Date / Time No Known Allergies Allergy Verified 10/11/20 12:41 PFSH Acute 2 PFSH: Medical History Diabetes type 2, controlled Hypertension Anxiety Depression Degenerative disorder of bone Surgical History History of left hip replacement History of cholecystectomy Social History Smoking and tobacco/nicotine status: never used tobacco/nicotine Second hand smoke exposure: No Alcohol intake: former Vitals/I&O/Wt Last Vital Signs Pulse 91 07/19/23 15:33 Resp 22 H 07/19/23 15:33 BP 101/64 07/19/23 15:33 Pulse Ox 95 07/19/23 15:33 O2 Del Method Room Air 07/19/23 15:09 07/19/23 07/19/23 07/19/23 06:59 14:59 22:59 Intake Total 0 / 0 Balance 0 / 0 Weight last 48 hrs Weight 102.058 kg Physical Exam 2 Narrative: Patient is awake and alert Clinical signs of dehydration Abdomen soft Nonfocal neuroexam S1, S2 No audible stridor or wheezing Active focal deficit Pleasant cooperative Appears stated age Data 07/19/23 14:35 07/19/23 14:35 Micro: Microbiology 07/19/23 15:24 Blood Culture - Preliminary Blood SPECIMEN COLLECTED A&P Assessment and plan (1) ROLO (acute kidney injury): (2) Dehydration: (3) Gastroenteritis: Plan Sepsis related to gastroenteritis Criteria met with tachypnea tachycardia high lactic acid and leukocytosis Source is gastroenteritis Cultures taken, fluid bolus given, antibiotics given in the ER Recurrent nausea vomiting Dehydration causing high lactic acid Afebrile Positive orthostasis Will request orthostatic vitals Patient has received IV fluids already Continue IV fluids for dehydration ROLO: Stop nephrotoxic agents Continue IV fluid hydration Stop hydrochlorothiazide and lisinopril Patient is diabetic I will start with brat diet which can be advanced to consistent carb Continue insulin sliding scale Will request CT abdomen pelvis without contrast Will keep patient on Zosyn Leukocytosis noted, afebrile, mild tachypnea Attestations 2 Medical Necessity Statement*: More than 2 midnights anticipated Diagnoses ROLO (acute kidney injury) N17.9 Dehydration E86.0 Gastroenteritis K52.9
--- NOTE | 2023-07-19 15:54 | CTR_ITS ---
PROCEDURE INFORMATION: Exam: CT Abdomen And Pelvis Without Contrast Exam date and time: 07/19/2023 4:02 PM Age: 53 years old Clinical indication: Other: Gastroenteritis; Prior surgery; Surgery date: 6+ months; Surgery type: Gb TECHNIQUE: Imaging protocol: Computed tomography of the abdomen and pelvis without contrast. Radiation optimization: All CT scans at this facility use at least one of these dose optimization techniques: automated exposure control; mA and/or kV adjustment per patient size (includes targeted exams where dose is matched to clinical indication); or iterative reconstruction. COMPARISON: CR XR chest 1V portable [id number] 07/19/2023 3:18 PM RADIATION DOSE METRICS: Total DLP (mGy-cm): 935 FINDINGS: Lungs: Subsegmental bibasilar atelectasis. The visualized lung bases are otherwise clear. Diaphragm: No evidence of diaphragmatic defect. Liver: There is nodularity of the liver contour compatible with hepatic cirrhosis. Gallbladder and bile ducts: Status post cholecystectomy. No evidence of intrahepatic or extrahepatic biliary dilatation. Pancreas: Mildly atrophic. Otherwise grossly unremarkable. Spleen: Grossly unremarkable. Adrenal glands: 1.6 cm lipid rich adenoma on the left. Adrenal glands are otherwise unremarkable. Kidneys and ureters: 3 mm nonobstructive left-sided renal stone. Otherwise no gross renal parenchymal abnormality. No evidence of hydronephrosis or ureteral stone. Stomach and bowel: No evidence of bowel obstruction or perienteric inflammatory changes. Appendix: Normal appendix. Intraperitoneal space: No evidence of free air or fluid collection. Vasculature: No evidence of aneurysmal dilitation of abdominal aorta. Lymph nodes: No evidence of adenopathy. Urinary bladder: Grossly unremarkable. Reproductive: Grossly unremarkable. Bones/joints: No evidence of acute fracture or aggresive osseous lesion. Soft tissues: No evidence of fluid collection or hematoma in the superficial soft tissues. CT/CT abdomen pelvis con [id number] IMPRESSION: 1. No evidence of acute abnormality in the abdomen or pelvis within limitations of a noncontrast exam.
[2023-07-19 16:27] LABS: Reflex Lactate Order REFLEX LACTIC ORDERD
[2023-07-19 17:09] LABS: Estmated Average Glucose 120; Hemoglobin A1C 5.8 % (4.0-6.0)
--- NOTE | 2023-07-19 17:16 | PC.NURSE ---
Medication Delay: Vancomycin delayed d/t waiting on Zosyn infusion.
[2023-07-19] MEDS: vancomycin 1,000 MG in sodium chloride 0.9% 250 ML 250 MG IV (17:27)
[2023-07-19] MEDS: sodium chloride 0.9% 1,000 ML 75 ML IV (17:28)
[2023-07-19] MEDS: pantoprazole 40 mg SDV IVP (17:31)
[2023-07-19 17:55] LABS: Troponin 5 2HR 22.95 ng/L (0-15)
[2023-07-19 17:56] LABS: Lactic Acid level (Lactate) 1.6 mmol/L (0.5-2.2)
[2023-07-19 18:02] LABS: Troponin 5 2HR Delta -12.05 ABS# (0-10)
--- NOTE | 2023-07-19 18:28 | USCV_ITS ---
Donna Presley Age: 53 Gender: M : 1970 Exam Date: 07/19/2023 19:54 Ordering Phys: Lesa Amezcua MD Technologist: BRI [place]am [place] [facility] [place] Indication: dizziness, weakness, near syncope, diarrhea, SOB. No history of cardiac intervention. BP: 139 / 91 HR: 75 Rhythm: Sinus Technical Quality: Adequate MEASUREMENTS (Male / Female) Normal Values 2D ECHO LV Diastolic Diameter PLAX 4.2 cm 4.2 - 5.9 / 3.9 - 5.3 cm IVS Diastolic Thickness 1.8 cm 0.6 - 1.0 / 0.6 - 0.9 cm IVS Systolic Thickness 2.2 cm LVPW Diastolic Thickness 1.3 cm 0.6 - 1.0 / 0.6 - 0.9 cm LVPW Systolic Thickness 1.8 cm LV Ejection Fraction 2D Teich 59.2 % LV Ejection Fraction MOD 2C 68.0 % LV Ejection Fraction 2C AL 69.9 % LA Diameter 3.4 cm LA Sys Volume AL 51.1 cm cubed LA Sys Volume Index AL 21.9 cm cubed/m squared Aorta at Sinotubular Diameter 3.5 cm M-MODE LA Ao Ratio MM 1.2 AV Cusp Separation MM 2.3 cm DOPPLER AV Peak Velocity 120.0 cm/s LVOT Peak Velocity 117.0 cm/s AV Area Cont Eq vti 3.9 cm squared AV Area Cont Eq pk 3.5 cm squared MV Peak Velocity 91.0 cm/s MV Area PHT 3.8 cm squared Mitral E to A Ratio 0.9 TV Peak E Velocity 44.0 cm/s PV Peak Velocity 95.0 cm/s FINDINGS Left Ventricle Left ventricle is normal size. LV systolic function is normal with EF of 55 to 60%. No regional wall motion abnormalities are seen. Right Ventricle Normal in size and function. Right Atrium Normal size. Left Atrium Normal in size Mitral Valve Structurally normal mitral valve. Trace mitral regurgitation. Aortic Valve Structurally normal aortic valve. No significant stenosis or regurgitation. Tricuspid Valve Insufficient TR jet to calculate RVSP. Pulmonic Valve Not well visualized. Pericardium Not well visualized Aorta Ascending aorta is mildly dilated with diameter of 3.56cm. IVC Appears to be normal CONCLUSIONS LV systolic function is normal with EF of 55-60% Trace mitral regurgitation Ascending aorta is mildly dilated with diameter of 3.56cm No comparison studies are available. Lucio Espinal MD (Electronically Signed) Final Date: 20 Jul 2023 10:15 S
--- NOTE | 2023-07-19 20:04 | PC.NURSE ---
Upon doing nursing shift assessment, I asked patient if he was having any pain. Patient states no, not since I took my Oxy. Upon further questioning, patient had taken one oxycodone pill from his home medication bottle. Bottle was confiscated and locked in Pyxis per protocol. Patient states, well, if they had offered it to me, I wouldn't have taken it. Patient educated to let us know when he is in pain so that we can administer his PRN pain medication. Patient educated that the same dose and frequency of his home Oxycodone is ordered as needed to be given from us.
--- NOTE | 2023-07-19 20:33 | ECG_ITS ---
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 Measurements Intervals [place] Rate: 69 P: 17 [place]: 164 QRS: -18 QRSD: 106 T: 23 QT: 392 QTc: 422 Interpretive Statements SINUS RHYTHM Compared to ECG 07/19/2023 14:55:47 Myocardial infarct finding no longer present Electronically Signed On 07-20-2023 9:22:28 CDT by Lucio Espinal M.D. [id number]
[2023-07-19 20:54] LABS: Glucose Point of Care 134 mg/dL (70-110)
[2023-07-19 21:06] LABS: Troponin 5 6HR 21.77 ng/L (0-15)
[2023-07-19 21:07] LABS: Troponin 5 6HR Delta -13.23 ng/L (0-12)
[2023-07-19] MEDS: acetaminophen 500 mg Tablet PO (23:58)
[2023-07-19] MEDS: oxyCODONE 5 mg IR Tab/Cap 10 MG PO (23:58)
[2023-07-20] VITALS (9 sets, daily range): BP systolic 102–137; BP diastolic 62–81; PULSE 61–87; RESP 16–18; TEMP 36.6–36.8; O2SAT 95–100
[2023-07-20] MEDS: piperacillin-tazobactam 3.375 GM in sodium chloride 0.9% (plus) 50 ML IV ×2 (00:37→08:32)
[2023-07-20 03:46] LABS: Add Urine Culture? No; Add Urine Microscopic? YES; Bacteria Urine TRACE /hpf; Bilirubin Urine Neg (Negative); Blood Urine Neg (Negative); Glucose Urine UA Norm (Normal); Ketones Urine Negative (Negative); Leukocyte Esterase Urine Negative (Negative); Mucus Urine 2+ /hpf; Nitrate Urine Negative (Negative); Protein Urine 1+ (Negative); Specific Gravity, Urine 1.015 (1.005-1.030); Urine Appearance Clear (CLEAR); Urine Color Yellow (Yellow); Urobilinogen Urine Neg (Negative); pH Urine 5 (5-7)
[2023-07-20] MEDS: oxyCODONE 5 mg IR Tab/Cap 10 MG PO ×2 (04:12→08:32)
[2023-07-20 06:08] LABS: Basophils # 0.1 10^3/uL (0.0-0.1); Basophils % 0.8 %; Eosinophils # 0.3 10^3/uL (0.0-0.8); Eosinophils % 3.7 %; Hematocrit 33.7 % (37-53); Lymphocytes # 2.5 10^3/uL (0.8-4.8); Lymphocytes % 34.4 %; Mean Corpuscular Volume 69.9 fl (82-101); Mean Platelet Volume 11.2 fL (7.4-10.4); Monocytes # 0.6 10^3/uL (0.2-0.9); Monocytes % 8.4 %; Neutrophils # 3.78 10^3/uL (1.8-7.7); Neutrophils % 52.3 %; Nucleated Red Blood Cells % 0 %; Platelet Count 191 10^3/cmm (157-399); Red Blood Count 4.82 10^6/uL (3.85-5.65); Red Cell Distribution Width 15.9 % (12.1-15.1); White Blood Count 7.24 10^3/uL (3.29-11.43)
[2023-07-20 06:35] LABS: Anion Gap 12.9 (5-19); Blood Urea Nitrogen 21 mg/dL (6-20); C Reactive Protein 7.3 mg/L (0.0-4.9); Calcium 8.2 mg/dL (8.5-10.5); Carbon Dioxide 21 mmol/L (22-29); Chloride 107 mmol/L (98-107); Creatinine Clr Calc Pharmacy 111.0031; Glomerular Filtration Rate 77.9 mL/min (90-130); Glucose 91 mg/dL (65-115); Magnesium 2.1 mg/dL (1.7-2.3); Osmolality Calculated 287 mOsm/kg (285-295); Phosphorus 3.3 mg/dL (2.5-4.5); Potassium 3.9 mmol/L (3.5-5.1); Sodium 137 mmol/L (136-145)
[2023-07-20 06:44] LABS: Glucose Point of Care 96 mg/dL (70-110)
--- NOTE | 2023-07-20 07:41 | PM.DCS ---
Discharge Providers Date of Admission: 07/19/23 17:35 Date of Discharge: July 20, 2023 Attending Provider at Admission: Lesa Amezcua MD Attending Provider at Discharge: Lesa Amezcua MD Primary Care Provider: Mxaine Napier DO Diagnoses at Discharge Discharge Diagnosis (1) ROLO (acute kidney injury): Status: Acute (2) Dehydration: Status: Acute (3) Gastroenteritis: Status: Acute Reason for Visit Reason for Visit: weakness Hospital Course Hospital Course 49-year-old male who was admitted for management evaluation of presyncopal events, dizziness, hypertension, patient suffered from an episode of diarrhea and vomiting. We were concerned that he has developed sepsis however that was ruled out, CT abdomen pelvis was unremarkable, there is no sepsis patient was just dehydrated which would explain high lactic acid which improved with IV fluid hydration, patient blood pressure has improved significantly patient is clinically doing much better no sign of stroke seizure BPPV or dizziness at the time of discharge. I have asked patient to use Zofran if he gets nauseous. There is no need of antibiotics. EKG unremarkable, troponin trending down, no active chest pain. TSH normal. Physical Exam Narrative: Signs of dehydration improving GCS 15 Nonfocal neuroexam Abdomen soft Tolerating diet S1, S2 Pleasant and cooperative Discharge Data Studies Completed and Pending Completed Studies During Hospitalization Category Date Time Status CT abdomen pelvis wo con [id number] Routine Cat Scan 07/19/23 15:[address] head wo con* [id number] Stat Cat Scan 07/19/23 14:33 Completed XR chest 1V portable [id number] Stat Exams 07/19/23 14:33 Completed Pending at discharge Category Date Time Status Blood Culture Stat Lab 07/19/23 14:34 Ordered CV. echo complete* [id number] Routine Ultrasound 07/19/23 18:28 Taken Radiology Impressions Chest X-Ray 07/19/23 14:33 Impression: Negative chest. Head CT 07/19/23 14:33 IMPRESSION: Negative head CT. Abdomen/Pelvis CT 07/19/23 15:54 IMPRESSION: 1. No evidence of acute abnormality in the abdomen or pelvis within limitations of a noncontrast exam. Laboratory Results WBC 7.24 10^3/uL (3.29-11.43) 07/20/23 05:27 RBC 4.82 10^6/uL (3.85-5.65) 07/20/23 05:27 Hgb 10.10 g/dL (11.27-16.99) L 07/20/23 05:27 Hct 33.7 % (37-53) L 07/20/23 05:27 MCV 69.9 fl (82-101) L D 07/20/23 05:27 MCH 21.0 pg (27-33) L 07/20/23 05:27 MCHC 30.0 g/dL (30-55) D 07/20/23 05:27 RDW 15.9 % (12.1-15.1) H 07/20/23 05:27 Plt Count 191 10^3/cmm (157-399) D 07/20/23 05:27 MPV 11.2 fL (7.4-10.4) H 07/20/23 05:27 Neut % (Auto) 52.3 % 07/20/23 05:27 Lymph % (Auto) 34.4 % 07/20/23 05:27 [place] % (Auto) 8.4 % 07/20/23 05:27 Eos % (Auto) 3.7 % 07/20/23 05:27 Baso % (Auto) 0.8 % 07/20/23 05:27 Neut # (Auto) 3.78 10^3/uL (1.8-7.7) 07/20/23 05:27 Lymph # (Auto) 2.5 10^3/uL (0.8-4.8) 07/20/23 05:27 [place] # (Auto) 0.6 10^3/uL (0.2-0.9) 07/20/23 05:27 Eos # (Auto) 0.3 10^3/uL (0.0-0.8) 07/20/23 05:27 Baso # (Auto) 0.1 10^3/uL (0.0-0.1) 07/20/23 05:27 Nucleated RBC % (auto) 0 % 07/20/23 05:27 Nucleated RBCs # 0.0 /100WBC 07/20/23 05:27 PT 13.70 SECONDS (12.1-14.9) 07/19/23 14:35 INR 1.02 (0.8-1.2) 07/19/23 14:35 D-Dimer <= 0.27 ug/mLFEU (0-0.59) 07/19/23 14:35 Sodium 137 mmol/L (136-145) 07/20/23 05:27 Potassium 3.9 mmol/L (3.5-5.1) 07/20/23 05:27 Chloride 107 mmol/L (98-107) 07/20/23 05:27 Carbon Dioxide 21 mmol/L (22-29) L 07/20/23 05:27 Anion Gap 12.9 (5-19) 07/20/23 05:27 BUN 21 mg/dL (6-20) H 07/20/23 05:27 Creatinine 1.0 mg/dL (0.7-1.2) 07/20/23 05:27 GFR Calculation 77.9 mL/min (90-130) L 07/20/23 05:27 Glucose 91 mg/dL (65-115) 07/20/23 05:27 POC Glucose 96 mg/dL (70-110) 07/20/23 06:36 Estimat Average Glucose 120 07/19/23 14:35 Hemoglobin A1c 5.8 % (4.0-6.0) 07/19/23 14:35 Calculated Osmolality 287 mOsm/kg (285-295) 07/20/23 05:27 Lactic Acid 4.5 mmol/L (0.5-2.2) H* 07/19/23 14:35 Lactic Acid (Sepsis) 1.6 mmol/L (0.5-2.2) 07/19/23 17:22 Calcium 8.2 mg/dL (8.5-10.5) L 07/20/23 05:27 Phosphorus 3.3 mg/dL (2.5-4.5) 07/20/23 05:27 Magnesium 2.1 mg/dL (1.7-2.3) 07/20/23 05:27 Total Bilirubin 0.6 mg/dL (0.15-1.2) 07/19/23 14:35 AST 34 U/L (0-40) 07/19/23 14:35 ALT 37 U/L (0-41) 07/19/23 14:35 Alkaline Phosphatase 105 U/L (40-130) 07/19/23 14:35 Troponin T Baseline 35 ng/L (0-15) H 07/19/23 14:35 Troponin T 120 Minute 22.95 ng/L (0-15) H 07/19/23 17:22 Delta Troponin T -12.05 ABS# (0-10) L 07/19/23 17:22 Troponin T Hi Sens 6Hr 21.77 ng/L (0-15) H 07/19/23 20:30 Troponin T Hi Sens 6Hr Delta -13.23 ng/L (0-12) L 07/19/23 20:30 C-Reactive Protein 7.3 mg/L (0.0-4.9) H 07/20/23 05:27 NT-Pro-B Natriuret Pep 49 pg/mL (0-125) 07/19/23 14:35 Total Protein 7.8 g/dL (6.6-8.7) 07/19/23 14:35 Albumin 4.8 g/dL (3.5-5.2) 07/19/23 14:35 Globulin 3.0 g/dL (1.3-4.6) 07/19/23 14:35 TSH 3.42 uIU/mL (0.27-4.20) 07/19/23 14:35 Urine Color Yellow (Yellow) 07/20/23 03:30 Urine Appearance Clear (CLEAR) 07/20/23 03:30 Urine pH 5 (5-7) 07/20/23 03:30 Ur Specific [place] 1.015 (1.005-1.030) 07/20/23 03:30 Urine Protein 1+ (Negative) H 07/20/23 03:30 Urine Glucose (UA) Norm (Normal) 07/20/23 03:30 Urine Ketones Negative (Negative) 07/20/23 03:30 Urine Blood Neg (Negative) 07/20/23 03:30 Urine Nitrate Negative (Negative) 07/20/23 03:30 Urine Bilirubin Neg (Negative) 07/20/23 03:30 Urine Urobilinogen Neg mg/dL (Negative) 07/20/23 03:30 Ur Leukocyte Esterase Negative (Negative) 07/20/23 03:30 Urine RBC None /hpf (0-2) 07/20/23 03:30 Urine WBC None /hpf (0-5) 07/20/23 03:30 Ur Squamous Epith Cells None /hpf (0-5) 07/20/23 03:30 Amorphous Sediment Not Reportable 07/20/23 03:30 Urine Bacteria Trace /hpf (NONE) 07/20/23 03:30 Urine Mucus 2+ /hpf 07/20/23 03:30 Vitals Last Vital Signs Temp 98.3 F 07/20/23 07:25 Pulse 61 07/20/23 07:25 Resp 17 07/20/23 07:25 BP 117/74 07/20/23 07:25 Pulse Ox 95 07/20/23 07:25 O2 Del Method Room Air 07/20/23 07:25 Discharge Plan Discharge Patient Disposition: Home Condition: Stable Prescriptions: Continued pantoprazole 20 mg tablet,delayed release (DR/EC) 20 mg PO DAILY atorvastatin 40 mg tablet 40 mg PO DAILY buspirone 30 mg tablet 30 mg PO BID lamotrigine 200 mg tablet 200 mg PO DAILY tizanidine 4 mg capsule 4 mg PO TID PRN (Reason: muscle spasms) oxycodone 10 mg tablet 10 mg PO Q4H PRN (Reason: Pain) acetaminophen [Tylenol] 325 mg Tablet 325 - 650 mg PO Q4H PRN (Reason: Pain) gabapentin 600 mg tablet 600 mg PO TID metformin 1,000 mg tablet 1,000 mg PO BID duloxetine 60 mg capsule,delayed release(DR/EC) 60 mg PO BID hydrochlorothiazide 25 mg tablet 25 mg PO DAILY PRN (Reason: SWELLING) zolpidem 12.5 mg tablet,ext release multiphase 12.5 mg PO BEDTIME PRN (Reason: Insomnia) albuterol sulfate 90 mcg/actuation HFA aerosol inhaler 1 puff INHALATION Q4H PRN (Reason: Shortness Of Breath) Held lisinopril 40 mg tablet 40 mg PO DAILY Hold Instructions: Resume on 07/23/23. Discontinued nabumetone 750 mg tablet 750 mg PO BID Discharge Orders: Discharge Order (Routine); Ordered 07/20/23 Ordered By: Lesa Amezcua Referrals: Maxine Napier DO [Primary Care Provider] - 07/25/23 2:00 pm Patient Instructions: Dehydration (DC), Acute Kidney Injury (DC), Opioid Safety Discharge Attestations Time Spent in Discharge Care*: less than 30 min Quality Metrics Clinical Quality Measures [ No reported AMI, CVA or VTE this stay] Coding Level of Care Code Acute Code for Chg Fwd Diagnoses ROLO (acute kidney injury) N17.9 Dehydration E86.0 Gastroenteritis K52.9
[2023-07-20] MEDS: pantoprazole 40 mg SDV IVP (08:31)
[2023-07-20] MEDS: pneumococcal (23 valent) SDV 0.5 mL IM (08:33)
[2023-07-20 11:11] LABS: Glucose Point of Care 126 mg/dL (70-110)
== END 2023-07-20 12:20 | disposition home or self-care (01) ==
LOC: ER 15:59 → MEDSURG 20:49
PROVIDERS: Admitting Provider Internal Medicine; Emergency Provider Emergency Medicine; PCP Family Medicine; Visit Provider Internal Medicine
DX: N17.9 Acute kidney failure, unspecified (principal); E86.0 Dehydration; K52.9 Noninfective gastroenteritis and colitis, unspecified; R53.1 Weakness; E11.9 Type 2 diabetes mellitus without complications; I10 Essential (primary) hypertension
CPT/HCPCS: 36415; 36416; 70450; 71045; 74176; 80048; 80053; 81001; 82962; 83036; 83605; 83735; 83880; 84100; 84443; 84484; 85025; 85378; 85610; 86140; 87040; 90471; 90732; 93005; 93306; 96365; 96367; 99285; C9113; G0378; J2543; J3370; J7030; J7040; J7050